=== PATIENT | male | born 1950 | race Caucasian/White ===

== ENCOUNTER 2023-03-20 14:30 | Emergency (ER) | payer MEDICARE, SELFPAY ==
--- NOTE | ~2023-03-20 | XR_ITS ---
XR chest 2V 03/20/2023 15:35 Indication: Altered mental status Procedure: 2 view chest Comparison: No prior studies for comparison. Findings: Left subclavian PICC line tip in the SVC. Heart size upper normal. There is a gastric tube present in the upper abdomen. No focal air space disease, pulmonary edema, pleural effusion or suspec emir pneumothorax. No acute osseous abnormality. Impression: 1: No acute cardiopulmonary disease. Reviewed, dictated and finalized at location L. Impression: 1: No acute cardiopulmonary disease.
--- NOTE | ~2023-03-20 | CT_ITS ---
EXAMINATION: CT brain wo con DATE: 03/20/2023 15:01 INDICATION: Recent brain surgery. Altered mental status. Patient less alert TECHNIQUE: Computed tomography (CT) of the head was performed without intravenous contrast. The dose- length product was 1362.00 mGy-cm. Automated exposure control and iterative reconstruction technique were employed. COMPARISON: None FINDINGS: There is a large geographic area of hypodensity in the left frontal-parietal lobe with area s of increased density measuring up to 3.6 cm in the left frontal lobe. There is mass effect with eff acement of the overlying cortical sulci and midline shift to the right measuring 9 mm. No ventriculom egaly. Basilar cisterns are patent. There is a left parietal craniotomy defect. There is an area of e ncephalomalacia in the left parietal lobe. There is effacement of the frontal horn of the left latera l ventricle. There is right sphenoid sinus disease. Left mastoid effusion. IMPRESSION: 1. Large hyperdense mass measuring up to 3.6 cm left frontal lobe with surrounding vasogenic edema in volving the left frontal and parietal lobes, suspicious for primary malignancy or metastatic disease. There is mass effect with effacement of the overlying cortical sulci and midline shift to the right measuring 9 mm. Correlate clinically for history of malignancy. Consider correlation with MRI without and with contrast or CT with contrast Reviewed, dictated and finalized at location L. IMPRESSION: 1. Large hyperdense mass measuring up to 3.6 cm left frontal lobe with surround ing vasogenic edema involving the left frontal and parietal lobes, suspicious f or primary malignancy or metastatic disease. There is mass effect with effaceme nt of the overlying cortical sulci and midline shift to the right measuring 9 m m. Correlate clinically for history of malignancy. Consider correlation with MR I without and with contrast or CT with contrast
[2023-03-20 14:27] VITALS: PULSE 98; RESP 18; O2SAT 98
--- NOTE | 2023-03-20 14:34 | ECG_ITS ---
Measurements Intervals [place] Rate: 95 P: CT: 0 QRS: -89 QRSD: 154 T: 37 QT: 392 QTc: 494 Interpretive Statements SINUS RHYTHM WITH FREQUENT PREMATURE ATRIAL COMPLEXES AND PREMATURE VENTRICULAR CONTRACTIONS. RIGHT BUNDLE BRANCH BLOCK NO PREVIOUS ECG AVAILABLE FOR COMPARISON Electronically Signed On 03-20-2023 17:11:33 CDT by George Galindo M.D.
[2023-03-20 14:36] VITALS: TEMP 36.8
--- NOTE | 2023-03-20 15:08 | ECG_ITS ---
Measurements Intervals [place] Rate: 96 P: 39 NC: 142 QRS: -87 QRSD: 154 T: 48 QT: 397 QTc: 503 Interpretive Statements SINUS RHYTHM WITH VENTRICULAR PACING WITH PREMATURE ATRIAL CONTRACTIONS AND PREMATURE VENTRICULAR CONTRACTION RIGHT BUNDLE BRANCH BLOCK LEFT AXIS DEVIATION ABNORMAL ECG COMPARED TO ECG 03/20/2023 14:36:48 NO SIGNIFICANT CHANGES Electronically Signed On 03-25-2023 9:08:09 CDT by Zi Arthur M.D.
[2023-03-20 15:34] LABS: Basophils Absolute Auto 0.1 K/mm3 (0.0-0.1); Basophils Percent Auto 0.8 % (0.2-1.2); Eosinophils Absolute Auto 0.3 K/mm3 (0-0.3); Eosinophils Percent Auto 2.1 % (0-4.4); Hematocrit 41.7 % (42.0-52.0); Hemoglobin 12.7 g/dL (14.0-18.0); Immature Granulocyte Absolute 0.13 K/mm3 (0.00-0.031); Lymphocytes Absolute Auto 1.31 K/mm3 (0.9-3.2); Lymphocytes Percent Auto 9.9 % (18.3-44.2); Mean Corpuscular HGB Conc 30.5 g/dl (32-36); Mean Corpuscular Hemoglobin 29.1 pg (26-34); Mean Corpuscular Volume 95.4 fl (80-100); Mean Platelet Volume 11.2 fl (7.4-10.4); Monocytes Absolute Auto 0.8 K/mm3 (0.1-0.6); Monocytes Percent Auto 5.7 % (2.6-8.5); Neutrophils Absolute Auto 10.6 K/mm3 (1.3-6.7); Neutrophils Percent Auto 80.5 % (45.5-73.1); Platelet Count Result 518 k/mm3 (150-375); Red Blood Count 4.37 M/mm3 (4.6-6.20); Red Cell Distribution Width 16.6 % (11.5-14.5); White Blood Count 13.2 K/mm3 (4.5-10.0)
[2023-03-20 15:39] LABS: Lactic Acid Reflex 0.9 mmol/L (0.7-2.0)
[2023-03-20 15:41] LABS: Alanine Aminotransferase 25 U/L (6-50); Albumin Level 2.6 g/dL (3.5-5.1); Alkaline Phosphatase 117 U/L (38-126); Anion Gap 1 mmol/L (8-16); Aspartate Amino Transferase 25 U/L (17-59); Bilirubin,Total 0.3 mg/dL (0.2-1.3); Blood Urea Nitrogen 23 mg/dL (9-20); Carbon Dioxide 32 mmol/L (22-30); Chloride 109 mmol/L (98-107); Estimated CRCL calculation 102 ml/min; Estimated Glomerular Filt Rate > 60; Glucose 185 mg/dL (65-110); Magnesium 1.7 mg/dL (1.6-2.3); Potassium 3.7 mmol/L (3.4-5.0); Sodium 142 mmol/L (137-145)
[2023-03-20 15:51] LABS: Troponin I 0.031 ng/mL (0.000-0.034)
[2023-03-20 16:07] LABS: Appearance Urine Cloudy (Clear); Bacteria Urine None Seen /hpf; Bilirubin Urine Negative (Negative); Blood Urine 3+ (Negative); Color Urine Dark Yellow (Yellow); Glucose Urine UA Negative (Negative); Ketones Urine Negative (Negative); Leukocyte Esterase Ur 1+ LEU/UL (Negative); Mucus Urine Present /lpf; Need Manual Microscopic Reviewed; Nitrate Urine Negative (Negative); Protein Urine 2+ mg/dL (Negative); RBC Urine >100 /hpf (0-2); Squamous Epithelial Cell Urine Occasional /hpf (Few); Urobilinogen Urine 0.2 mg/dL (<2.0); pH Urine 5.5 (5.0-9.0)
[2023-03-20 16:09] LABS: Add Urine Microscopic? YES
--- NOTE | 2023-03-20 16:13 | ED.SYNCOPE ---
HPI - Syncope General Chief Complaint: Syncope Stated Complaint: SYNCOPY? / AMS ? Time Seen by Provider: 03/20/23 14:33 History of Present Illness HPI narrative: Patient with recent diagnosis of glioblastoma status post surgery subsequently complicated by hemorrhagic stroke presents here after he had just arrived to rehab, and seemed less responsive. He also seemed to be breathing funny per daughter at bedside. Per longterm report, patient had been sitting in a chair and was found on the ground. Review of Systems Review of Systems: ROS unobtainable: Yes unobtainable due to medical condition PMFSH Past Medical History Medical History (Updated 03/20/23 @ 17:09 by Aaliyah Eaton MD) GBM (glioblastoma multiforme) Hemorrhagic cerebrovascular accident (CVA) Seizures Surgical History Surgical History (Updated 03/20/23 @ 16:15 by Aaliyah Eaton MD) Hx of brain surgery Exam Narrative: EXAMINATION OF ORGAN SYSTEMS/BODY AREAS: Constitutional: Vital signs per nursing GENERAL: Eyes wide open, breathing hard HEAD: Old surgical scars to head without any obvious new signs of head trauma EYES: PERRL ENT: Hearing grossly intact LUNGS: Somewhat labored respirations; clear lungs HEART: [Regular rate and rhythm] ABD: [Soft], [nontender to palpation], PEG tube in place EXT: Normal range of motion SKIN: [No rashes or lesions.] NEURO: [Alert; nonverbal at baseline, right side paralysis. Able to give thumbs up/neutral to questions] PSYCH: Normal affect Course Vital Signs Vital signs: Vital Signs Pulse Rate 98 03/20/23 14:27 Respiratory Rate 18 03/20/23 14:27 Pulse Oximetry 98 03/20/23 14:27 Oxygen Delivery Room Air 03/20/23 14:27 Temperature 98.2 F 03/20/23 14:36 Pulse Rate 98 03/20/23 14:27 Respiratory Rate 18 03/20/23 14:27 Pulse Oximetry 98 03/20/23 14:27 Oxygen Delivery Room Air 03/20/23 14:27 MDM - Syncope MDM Narrative Medical decision making narrative: 73-year-old male presenting with possibly altered mental status, vital signs stable, he is paralyzed on the right side and aphasic which per EMS is normal for him, he does have labored respirations. Further information obtained from daughter upon her arrival, this is apparently how he has been after the initial stroke, but since then he has been doing slightly better and had been more alert Until today. Per EMS there has been a fall earlier unwitnessed. Differential at this time given his symptoms include another CVA, intracranial hemorrhage, seizure. Labs, chest x-ray, CT obtained here, he does have a slight leukocytosis however I do not note any obvious signs of infection with normal chest x-ray and urinalysis. CT head does show large mass with edema with shift, however I do not know what his baseline is, multiple calls made to the facility where he had surgery done in [facility], however have not heard back after 2 hours, at this time patient is now alert, he is actually able to speak and express that he wants to go home at this time. Given that this is a terminal case and per daughter no further plans for surgery at this time, and she is planning on starting him on hospice after rehab, and there are no acute findings, and daughter would like to take him home, I do feel it is not inappropriate to discharge the patient at this time and he can always return for any further issues. Long discussion with daughter regarding this plan. Lab Data 03/20/23 15:15 03/20/23 15:15 Labs: Lab Results 03/20/23 Range/Units 15:15 WBC 13.2 H (4.5-10.0) K/mm3 RBC 4.37 L (4.6-6.20) M/mm3 Hgb 12.7 L (14.0-18.0) g/dL Hct 41.7 L (42.0-52.0) % MCV 95.4 (80-100) fl MCH 29.1 (26-34) pg MCHC 30.5 L (32-36) g/dl RDW 16.6 H (11.5-14.5) % Plt Count 518 H (150-375) k/mm3 MPV 11.2 H (7.4-10.4) fl Immature Gran % (Auto) 1.0 H (0-0.5) % Neut % (Auto) 80.5 H (45.5
== END 2023-03-20 19:12 ==
PROVIDERS: Emergency Provider Emergency Medicine; PCP Internal Medicine
DX: R41.82 Altered mental status, unspecified (principal); I69.351 Hemiplegia and hemiparesis following cerebral infarction affecting right dominant side; I69.320 Aphasia following cerebral infarction; G93.89 Other specified disorders of brain; I49.1 Atrial premature depolarization; I49.3 Ventricular premature depolarization; I45.10 Unspecified right bundle-branch block
CPT/HCPCS: 36415; 70450; 71046; 80053; 81001; 83605; 83735; 84484; 85025; 87086; 93005; 99284

== ENCOUNTER 2023-04-06 10:40 | Emergency (ER) | payer MEDICARE, SELFPAY ==
[2023-04-06 10:46] VITALS: BP 102/61; PULSE 120; RESP 16; O2SAT 98
--- NOTE | 2023-04-06 10:49 | ECG_ITS ---
Measurements Intervals [place] Rate: 117 P: 45 UT: 155 QRS: 268 QRSD: 148 T: 56 QT: 320 QTc: 448 Interpretive Statements SINUS TACHYCARDIA WITH FREQUENT VENTRICULAR PREMATURE COMPLEXES IN A BIGEMINAL PATTERN POSSIBLE LEFT ATRIAL ENLARGEMENT [-0.1mV P-WAVE IN V1/V2] RIGHT AXIS DEVIATION [QRS AXIS > 100] RIGHT BUNDLE BRANCH BLOCK [120+ ms QRS DURATION, UPRIGHT V1, 40+ ms S IN I/aVL/V4/V5/V6] COMPARED TO ECG 03/20/2023 15:08:17 NO SIGNIFICANT DIFFERENCE Electronically Signed On 04-06-2023 17:15:25 CDT by Gaston Wood M.D.
--- NOTE | 2023-04-06 10:59 | ED.GENADULT ---
HPI - General Adult General Chief complaint: Unspecified Stated complaint: hyperkalemia, rash Time Seen by Provider: 04/06/23 10:59 Source: family and EMS Mode of arrival: EMS Limitations: altered mental status, physical limitation and clinical condition History of Present Illness HPI narrative: Patient came from [facility] by ambulance with change of mental status, skin lesion on the back and hyperkalemia. Patient's daughter was at the bedside at the time of her arrival, history of glioblastoma, status postcraniotomy, patient condition has been deteriorating since the surgery with stroke, the daughter requested hospice, and no blood work-up or imaging to be done at this time. Related Data Allergies Allergy/AdvReac Type Severity Reaction Status Date / Time aspirin Allergy Unknown Verified 04/06/23 12:20 Review of Systems Review of Systems: ROS unobtainable: Yes unobtainable due to medical condition and unobtainable due to mental status PMFSH Past Medical History Medical History GBM (glioblastoma multiforme) Hemorrhagic cerebrovascular accident (CVA) Seizures Surgical History Surgical History Hx of brain surgery Exam Narrative: General appearance: Well-developed, malnourished Skin: Erythematous skin with abrasion on the back, patient high likely the beginning of decubitus ulcer, patient feeling down on the back of the time Head: Surgical scar Eyes: Clear conjunctiva ENT: Dry oral cavity, Chest and respiratory: Airway patent, no respiratory distress, no accessory muscle use Heart: Regular rate/rhythm Abdomen: Soft, tender abdomen, no organomegaly, quiet bowel sounds Vascular: Normal peripheral pulses, normal capillary refill. Musculoskeletal: Does not follow commands Neurologic: Alert does not follow commands Course Vital Signs Vital signs: Vital Signs Pulse Rate 120 H 04/06/23 10:46 Respiratory Rate 16 04/06/23 10:46 Blood Pressure 102/61 04/06/23 10:46 Pulse Oximetry 98 04/06/23 10:46 Oxygen Delivery Room Air 04/06/23 10:46 Pulse Rate 118 H 04/06/23 13:36 Respiratory Rate 18 04/06/23 13:36 Blood Pressure 150/86 H 04/06/23 13:36 Pulse Oximetry 95 04/06/23 13:36 Oxygen Delivery Room Air 04/06/23 10:46 Medical Decision Making MDM Narrative Medical decision making narrative: Patient to be hospice and go back to [facility] after care navigator evaluation. Vital Signs Vital Signs: Vital Signs Pulse Rate 120 H 04/06/23 10:46 Respiratory Rate 16 04/06/23 10:46 Blood Pressure 102/61 04/06/23 10:46 Pulse Oximetry 98 04/06/23 10:46 Oxygen Delivery Room Air 04/06/23 10:46 Pulse Rate 118 H 04/06/23 13:36 Respiratory Rate 18 04/06/23 13:36 Blood Pressure 150/86 H 04/06/23 13:36 Pulse Oximetry 95 04/06/23 13:36 Oxygen Delivery Room Air 04/06/23 10:46 Lab Data 04/06/23 11:16 04/06/23 11:16 Labs: Lab Results 04/06/23 Range/Units 11:16 WBC 17.6 H (4.5-10.0) K/mm3 RBC 4.77 (4.6-6.20) M/mm3 Hgb 14.0 (14.0-18.0) g/dL Hct 42.7 (42.0-52.0) % MCV 89.5 (80-100) fl MCH 29.4 (26-34) pg MCHC 32.8 (32-36) g/dl RDW 18.3 H (11.5-14.5) % Plt Count 491 H (150-375) k/mm3 MPV 11.3 H (7.4-10.4) fl Immature Gran % (Auto) 0.6 H (0-0.5) % Neut % (Auto) 90.2 H (45.5-73.1) % Lymph % (Auto) 3.6 L (18.3-44.2) % [place] % (Auto) 4.8 (2.6-8.5) % Eos % (Auto) 0.2 (0-4.4) % Baso % (Auto) 0.6 (0.2-1.2) % Lymph # (Auto) 0.64 L (0.9-3.2) K/mm3 [place] # (Auto) 0.8 H (0.1-0.6) K/
[2023-04-06 11:22] LABS: Basophils Absolute Auto 0.1 K/mm3 (0.0-0.1); Basophils Percent Auto 0.6 % (0.2-1.2); Eosinophils Percent Auto 0.2 % (0-4.4); Hematocrit 42.7 % (42.0-52.0); Immature Granulocyte Absolute 0.11 K/mm3 (0.00-0.031); Immature Granulocyte Percent A 0.6 % (0-0.5); Lymphocytes Absolute Auto 0.64 K/mm3 (0.9-3.2); Lymphocytes Percent Auto 3.6 % (18.3-44.2); Mean Corpuscular HGB Conc 32.8 g/dl (32-36); Mean Corpuscular Hemoglobin 29.4 pg (26-34); Mean Corpuscular Volume 89.5 fl (80-100); Mean Platelet Volume 11.3 fl (7.4-10.4); Monocytes Absolute Auto 0.8 K/mm3 (0.1-0.6); Monocytes Percent Auto 4.8 % (2.6-8.5); Neutrophils Absolute Auto 15.8 K/mm3 (1.3-6.7); Neutrophils Percent Auto 90.2 % (45.5-73.1); Platelet Count Result 491 k/mm3 (150-375); Red Blood Count 4.77 M/mm3 (4.6-6.20); Red Cell Distribution Width 18.3 % (11.5-14.5); White Blood Count 17.6 K/mm3 (4.5-10.0)
[2023-04-06 11:37] LABS: Alanine Aminotransferase 22 U/L (6-50); Albumin Level 2.9 g/dL (3.5-5.1); Alkaline Phosphatase 540 U/L (38-126); Anion Gap 10 mmol/L (8-16); Aspartate Amino Transferase 28 U/L (17-59); Bilirubin,Total 0.7 mg/dL (0.2-1.3); Calcium 8.7 mg/dL (8.4-10.2); Carbon Dioxide 37 mmol/L (22-30); Chloride 90 mmol/L (98-107); Estimated Glomerular Filt Rate 19; Glucose 271 mg/dL (65-110); Potassium 4.7 mmol/L (3.4-5.0); Sodium 137 mmol/L (137-145)
[2023-04-06 11:50] LABS: Blood Urea Nitrogen 131 mg/dL (9-20)
[2023-04-06 12:16] VITALS: BP 115/99; PULSE 115; RESP 14; O2SAT 95
--- NOTE | 2023-04-06 13:11 | PCCCNOTE ---
Meet with pt and daughter. Hospice referral requested and [facility] contacted and will contact daughter to meet and evaluate and sign Hospice paper. Daughter is aware and in agreement.
[2023-04-06 13:36] VITALS: BP 150/86; PULSE 118; RESP 18; O2SAT 95
--- NOTE | 2023-04-06 13:42 | PC.NURSE ---
report called back to [facility]. NELY here speaking with pt. and family at this time.
== END 2023-04-06 14:45 | disposition hospice, home (50) ==
PROVIDERS: Emergency Provider Emergency Medicine; PCP Internal Medicine
DX: Z51.5 Encounter for palliative care (principal); R41.82 Altered mental status, unspecified; Z85.841 Personal history of malignant neoplasm of brain; L98.9 Disorder of the skin and subcutaneous tissue, unspecified; E78.5 Hyperlipidemia, unspecified; Z86.73 Personal history of transient ischemic attack (TIA), and cerebral infarction without residual deficits; R00.0 Tachycardia, unspecified; I49.3 Ventricular premature depolarization; R94.31 Abnormal electrocardiogram [ECG] [EKG]
CPT/HCPCS: 36415; 80053; 85025; 93005; 99283